=== PATIENT | male | born 1995 | race Caucasian/White ===

== ENCOUNTER 2023-06-04 14:12 | Emergency (ER) | payer OTHER, SELFPAY ==
[2023-06-04 14:22] VITALS: BP 142/77; PULSE 81; RESP 16; TEMP 36.6; O2SAT 96; BMI 36.5
--- NOTE | 2023-06-04 14:55 | W.ED.DIZZY ---
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 He is alert and oriented when he arrives here. He said a lot of leg cramping. He had multiple episodes of heat exhaustion in the past. MD elicited complaint: dizziness, lightheadedness and near syncope Onset (ago): hour(s) Timing: gradual onset Severity: moderate Description: lightheadedness and difficulty walking Exacerbating factors: nothing Relieving factors: nothing Associated symptoms: Reports no associated symptoms, abnormal vaginal bleeding and other; Denies change in hearing, chest pain, chills, cough, diaphoresis, ear discharge, ear pressure, fevers/chills, headache(s), malaise, nausea, nasal congestion, palpitations, rash, short of breath, syncope, tinnitus, vomiting or weakness Associated neuro symptoms: Reports no associated symptoms Review of Systems Const: Denies: chills, malaise or diaphoresis ENMT: Denies: ear discharge, change in hearing, tinnitus or nasal congestion Card: Denies: chest pain, palpitations or syncope Resp: Denies: dyspnea, productive cough or non-productive cough GI: Denies: nausea or vomiting : Denies: flank pain, dysuria, urinary frequency or urinary urgency Skin/Breast: Denies: rash or pruritus Neuro: Denies: headache(s) Physical Exam Const: GENERAL APPEARANCE: cooperative and comfortable ORIENTATION/CONSCIOUSNESS: Yes awake, Yes oriented to person, Yes oriented to place and Yes oriented to time HENMT: COMMON NORMALS: normocephalic, atraumatic and hearing grossly normal bilaterally HEAD & SCALP: normocephalic and atraumatic Resp: COMMON NORMALS: normal respiratory effort, No retractions, No use of accessory muscles and clear to auscultation bilaterally AUSCULTATION: clear to auscultation bilaterally Cardio: COMMON NORMALS: regular rate, regular rhythm and No murmurs present (Cardio) RATE: regular rate RHYTHM: regular rhythm GI: COMMON NORMALS: Soft to palpation and No hepatosplenomegaly present AUSCULTATION: Yes normoactive bowel sounds PALPATION: Yes Soft to palpation, No Tenderness to palpation present (GI), No Guarding due to palpation present (GI) and Yes No hepatosplenomegaly present Extremity: COMMON NORMALS: normal to inspection, capillary refill normal, no clubbing, cyanosis or edema, no calf tenderness and no pedal edema Neuro: SENSORIUM/ORIENTATION: Yes oriented to person, Yes oriented to place and Yes oriented to time Skin: COMMON NORMALS: no rashes or lesions noted GENERAL SKIN EXAM: no rashes or lesions noted Course Vital Signs: Vital signs: Vital Signs Temperature 97.8 F 06/04/23 14:22 Pulse Rate 81 06/04/23 14:22 Respiratory Rate 16 06/04/23 14:22 Blood Pressure 142/77 06/04/23 14:22 Pulse Oximetry 98 06/04/23 15:13 Oxygen Delivery Me thod Room Air 06/04/23 15:13 MDM - Dizziness Medical Decision Making Moderate heat exhaustion improved with fluids patient is feeling better give promethazine use as needed recommend avoiding a note for return to work instructions given Medical Records I reviewed the patient's medical records. Lab Data I reviewed the patient's lab results. 06/04/23 14:45 06/04/23 14:45 Laboratory Results WBC 13.75 10^3/uL (3.29-11.43) H 06/04/23 14:45 RBC 4.96 10^6/uL (3.85-5.65) 06/04/23 14:45 Hgb 15.20 g/dL (11.27-16.99) 06/04/23 14:45 Hct 44.1 % (37-53) 06/04/23 14:45 MCV 88.9 fl (82-101) 06/04/23 14:45 MCH 30.6 pg (27-33) 06/04/23 14:45 MCHC 34.5 g/dL (30-55) 06/04/23 14:45 RDW 12.4 % (12.1-15.1) 06/04/23 14:45 Plt Count 260 10^3/cmm (157-399) 06/04/23 14:45 MPV 10.6 fL (7.4-10.4) H 06/04/23 14:45 Neut % (Auto) 59.7 % 06/04/23 14:45 Lymph % (Auto) 30.8 % 06/04/23 14:45 Thomas % (Auto) 8.4 % 06/04/23 14:45 Eos % (Auto) 0.3 % 06/04/23 14:45 Baso % (Auto) 0.4 % 06/04/23 14:45 Neut # (Auto) 8.20 10^3/uL (1.8-7.7) H 06/04/23 14:45 Lymph # (Auto) 4.2 10^3/uL (0.8-4.8) 06/04/23 14:45 Thomas # (Auto) 1.2 10^3/uL (0.2-0.9) H 06/04/23 14:45 Eos # (Auto) 0.0 10^3/uL (0.0-0.8) 06/04/23 14:45 Baso # (Auto) 0.1 10^3/uL (0.0-0.1) 06/04/23 14:45 Nucleated RBC % (auto) 0 % 06/04/23 14:45 Nucleated RBCs # 0.0 /100WBC 06/04/23 14:45 Sodium 138 mmol/L (136-145) 06/04/23 14:45 Potassium 3.8 mmol/L (3.5-5.1) 06/04/23 14:45 Chloride 105 mmol/L (98-107) 06/04/23 14:45 Carbon Dioxide 20 mmol/L (22-29) L 06/04/23 14:45 Anion Gap 16.8 (5-19) 06/04/23 14:45 BUN 16 mg/dL (6-20) 06/04/23 14:45 Creatinine 1.1 mg/dL (0.7-1.2) 06/04/23 14:45 GFR Calculation 79.7 mL/min (90-130) L 06/04/23 14:45 Glucose 106 mg/dL (65-115) 06/04/23 14:45 Calculated Osmolality 288 mOsm/kg (285-295) 06/04/23 14:45 Calcium 9.2 mg/dL (8.5-10.5) 06/04/23 14:45 Total Bilirubin 0.7 mg/dL (0.15-1.2) 06/04/23 14:45 AST 16 U/L (0-40) 06/04/23 14:45 ALT 23 U/L (0-41) 06/04/23 14:45 Alkaline Phosphatase 54 U/L (40-130) 06/04/23 14:45 Total Protein 7.0 g/dL (6.6-8.7) 06/04/23 14:45 Albumin 4.5 g/dL (3.5-5.2) 06/04/23 14:45 Globulin 2.5 g/dL (1.3-4.6) 06/04/23 14:45 Urine Color Yellow (Yellow) 06/04/23 15:35 Urine Appearance Clear (CLEAR) 06/04/23 15:35 Urine pH 5 (5-7) 06/04/23 15:35 Ur Specific Vanderbilt 1.015 (1.005-1.030) 06/04/23 15:35 Urine Protein Neg (Negative) 06/04/23 15:35 Urine Glucose (UA) Norm (Normal) 06/04/23 15:35 Urine Ketones Negative (Negative) 06/04/23 15:35 Urine Blood Neg (Negative) 06/04/23 15:35 Urine Nitrate Negative (Negative) 06/04/23 15:35 Urine Bilirubin Neg (Negative) 06/04/23 15:35 Urine Urobilinogen Norm mg/dL (Negative) 06/04/23 15:35 Ur Leukocyte Esterase Negative (Negative) 06/04/23 15:35 Discharge Plan Discharge Patient Disposition: Home Clinical Impression: Heat exhaustion Condition: Stable Prescriptions: New promethazine 25 mg tablet 25 mg PO Q6H PRN (Reason: nausea and vomiting) Qty: 10 0RF No Action naproxen sodium 220 mg Tablet 220 mg PO BID PRN (Reason: Pain) Discharge Orders: Discharge ED (Routine); Ordered 06/04/23 Ordered By: Juan A Mendoza Discharge Diet: Usual diet Discharge Activity: Increase activity as tolerated Patient Instructions: Opioid Safety, Pain Management Stand Alone Forms: Work/School Release Coding Level of Care Code ED Rating Specialist for Barney Ray
[2023-06-04] MEDS: acetaminophen 500 mg Tablet 1000 MG PO (15:01)
[2023-06-04] MEDS: ondansetron 2 mg/ML SDV 2 mL 4 MG IVP (15:02)
[2023-06-04] MEDS: sodium chloride 0.9% 1,000 ML 999 ML IV ×2 (15:05→15:42)
[2023-06-04 15:07] LABS: Basophils # 0.1 10^3/uL (0.0-0.1); Basophils % 0.4 %; Eosinophils % 0.3 %; Hematocrit 44.1 % (37-53); Lymphocytes # 4.2 10^3/uL (0.8-4.8); Lymphocytes % 30.8 %; Mean Corpuscular HGB Conc 34.5 g/dL (30-55); Mean Corpuscular Hemoglobin 30.6 pg (27-33); Mean Corpuscular Volume 88.9 fl (82-101); Mean Platelet Volume 10.6 fL (7.4-10.4); Monocytes # 1.2 10^3/uL (0.2-0.9); Monocytes % 8.4 %; Neutrophils % 59.7 %; Nucleated Red Blood Cells % 0 %; Platelet Count 260 10^3/cmm (157-399); Red Blood Count 4.96 10^6/uL (3.85-5.65); Red Cell Distribution Width 12.4 % (12.1-15.1); White Blood Count 13.75 10^3/uL (3.29-11.43)
[2023-06-04 15:11] LABS: Alanine Aminotransferase 23 U/L (0-41); Albumin Level 4.5 g/dL (3.5-5.2); Alkaline Phosphatase 54 U/L (40-130); Anion Gap 16.8 (5-19); Aspartate Amino Transferase 16 U/L (0-40); Blood Urea Nitrogen 16 mg/dL (6-20); Calcium 9.2 mg/dL (8.5-10.5); Carbon Dioxide 20 mmol/L (22-29); Chloride 105 mmol/L (98-107); Globulin 2.5 g/dL (1.3-4.6); Glomerular Filtration Rate 79.7 mL/min (90-130); Glucose 106 mg/dL (65-115); Osmolality Calculated 288 mOsm/kg (285-295); Potassium 3.8 mmol/L (3.5-5.1); Sodium 138 mmol/L (136-145); Total Bilirubin 0.7 mg/dL (0.15-1.2)
[2023-06-04 15:13] VITALS: O2SAT 98
[2023-06-04 15:49] LABS: Add Urine Microscopic? NO; Charge for UA Resulting for Rev
[2023-06-04 15:55] LABS: Bilirubin Urine Neg (Negative); Blood Urine Neg (Negative); Glucose Urine UA Norm (Normal); Ketones Urine Negative (Negative); Leukocyte Esterase Urine Negative (Negative); Nitrate Urine Negative (Negative); Protein Urine Neg (Negative); Specific Gravity, Urine 1.015 (1.005-1.030); Urine Appearance Clear (CLEAR); Urine Color Yellow (Yellow); Urobilinogen Urine Norm (Negative); pH Urine 5 (5-7)
== END 2023-06-04 16:19 | disposition home or self-care (01) ==
PROVIDERS: Emergency Provider Family Medicine
DX: T67.5XXA Heat exhaustion, unspecified, initial encounter (principal); X30.XXXA Exposure to excessive natural heat, initial encounter; Y99.0 Civilian activity done for income or pay
CPT/HCPCS: 36415; 80053; 81003; 85025; 96361; 96374; 99284; J2405; J7030